=== PATIENT | male | born 1970 | race Caucasian/White ===

== ENCOUNTER 2016-11-08 03:03 | Emergency (ER) | payer OTHER ==
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
[2016-11-14] MEDS ORDERED: PERCOCET 10-321 EACH PO (12:49)
[2016-11-14] MEDS ORDERED: HYDROCODON-ACE1 EAC4 PO (12:49)
[2016-11-14] MEDS ORDERED: AMOXICILLIN500 M1 PO (12:51)
[2016-12-04] MEDS ORDERED: OXYCODONE H5 MG/5 ML PO (15:36)
[2016-12-04] MEDS ORDERED: PERIDEX15 ML PO (15:37)
== END 2016-11-08 04:15 | disposition disaster alternative care site (69) ==
LOC: GACC 03:03
DX: S02.609A Fracture of mandible, unspecified, initial encounter for closed fracture (principal); J32.9 Chronic sinusitis, unspecified; Y04.0XXA Assault by unarmed brawl or fight, initial encounter
CPT/HCPCS: J1885

== ENCOUNTER 2016-11-09 20:39 | Emergency (ER) | payer OTHER ==
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
[2016-11-14] MEDS ORDERED: HYDROCODON-ACE1 EAC4 PO (12:49)
[2016-11-14] MEDS ORDERED: PERCOCET 10-321 EACH PO (12:49)
[2016-11-14] MEDS ORDERED: AMOXICILLIN500 M1 PO (12:51)
[2016-12-04] MEDS ORDERED: OXYCODONE H5 MG/5 ML PO (15:36)
[2016-12-04] MEDS ORDERED: PERIDEX15 ML PO (15:37)
== END 2016-11-09 21:25 | disposition disaster alternative care site (69) ==
LOC: GMED 20:39
DX: S02.609A Fracture of mandible, unspecified, initial encounter for closed fracture (principal); I10 Essential (primary) hypertension; Z98.890 Other specified postprocedural states; Z79.899 Other long term (current) drug therapy; Z88.8 Allergy status to other drugs, medicaments and biological substances; Y04.0XXA Assault by unarmed brawl or fight, initial encounter

== ENCOUNTER → 2016-12-04 | Day surgery (SDC) | payer SELFPAY ==
[~2016-12-04] VITALS: Ht 182.9 cm; Wt 89.9 kg
[~2016-12-04] MED LIST: AMOXICILLIN500 M1 PO; HYDROCODON-ACE1 EAC4 PO; OXYCODONE H5 MG/5 ML PO; PERCOCET 10-321 EACH PO; PERIDEX15 ML PO
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
== END | disposition disaster alternative care site (69) ==
LOC: GPOC 11-14 11:00 → GSDC 11-20 11:00
DX: S02.69XA Fracture of mandible of other specified site, initial encounter for closed fracture (principal); Y09 Assault by unspecified means
CPT/HCPCS: A9270; C1713; J0690; J1100; J2001; J2405; J3010; J7120